=== PATIENT | female | born 1935 | race Caucasian/White ===

== ENCOUNTER 2016-10-10 12:19 | Observation (INO) | payer SELFPAY ==
[~2016-10-10] VITALS: Ht 157.5 cm; Wt 110.4 kg
[2016-10-10] MEDS ORDERED: DIPHENHYDRAMINE 50 MG INJ IV STA (12:31)
[2016-10-10] MEDS ORDERED: EPINEPHrine 1 MG INJ IM STA (12:31)
[2016-10-10 12:54] LABS: ADD SCAN DIFF NO
[2016-10-10] MEDS ORDERED: DEXAMETHASONE 10 MG/ML 1 ML INJ IV ONE (13:00)
--- NOTE | 2016-10-10 13:03 | RADRPT ---
PROCEDURE: XR Chest. CLINICAL INDICATION: Shortness of breath. Anaphylaxis. TECHNIQUE: Single frontal view. COMPARISON: None. FINDINGS: The lungs are clear. The heart is enlarged. There is calcification in the aorta consistent with atherosclerosis. There is no pleural effusion. There is no pneumothorax. IMPRESSION: 1. Cardiomegaly and atherosclerosis. 2. Clear lungs. RPTAT: QQ .Damien Wood MD, MD Date Time Electronically viewed and signed by .Damien Wood MD, MD on 10/10/2016 13:02 .R/
[2016-10-10 13:13] LABS: ALBUMIN 4.7 g/dl (3.3-4.9); ALBUMIN/GLOBULIN RATIO 3.91; BASOPHILS % 0.3 % (0.0-2.0); CALCIUM 9.5 mg/dl (8.4-10.2); CREATININE 0.73 mg/dl (0.44-1.00); EOSINOPHILS # 0.1 10^3/ul (0.0-0.5); EOSINOPHILS % 0.9 % (0.0-7.0); HEMATOCRIT 40.9 % (37.0-47.0); HEMOGLOBIN 12.4 g/dl (12.0-16.0); LYMPHOCYTES # 2.1 10^3/ul (0.8-2.9); LYMPHOCYTES % 20.9 % (15.0-51.0); MEAN CORPUSCULAR HEMOGLOBIN 25.1 pg (29.0-33.0); MEAN CORPUSCULAR HGB CONC 30.3 g/dl (32.0-37.0); MEAN CORPUSCULAR VOLUME 82.8 fl (82.0-101.0); MEAN PLATELET VOLUME 11.4 fl (7.4-10.4); MONOCYTE # 0.6 10^3/ul (0.3-0.9); NEUTROPHIL # 7.2 10^3/ul (1.6-7.5); NEUTROPHILS % 71.6 % (39.0-77.0); PLATELET COUNT 333 10^3/UL (140-415); POTASSIUM 4.2 mmol/L (3.5-5.1); RED BLOOD COUNT 4.94 10^6/ul (4.20-5.40); TOTAL PROTEIN 5.9 g/dl (6.1-8.1); WHITE BLOOD COUNT 10.1 10^3/ul (4.8-10.8)
[2016-10-10] MEDS ORDERED: IODIXANOL LOCM 100 ML BTL ONE (13:25)
[2016-10-10] MEDS ORDERED: SOD CHLORIDE 0.9% 100 ML ONE (13:25)
--- NOTE | 2016-10-10 14:07 | RADRPT ---
PROCEDURE: CT scan of the neck with contrast. CLINICAL INDICATION: pain, swelling TECHNIQUE: CT scan of the neck was performed. The patient was examined with the use of intravenou s administration of 100 cc of Isovue 300 iodinated contrast. No reported complications occurred. One or more of the following dose reduction techniques were used: Automated exposure control, Adjust ment of the mA and/or kV according to patient size, and/or use of iterative reconstruction technique . DOSE: CTDI = 10 mGy and the DLP = 325 mGy-cm. COMPARISON: None available FINDINGS: Moderate tongue swelling. Gross preservation of fat planes of the floor of mouth, submandibular space and sublingual spaces. The foraminal septum remains midline. No drainable rim-enhancing fluid collection identified. Mild thickening of the epiglottis and aryepiglottic folds. There is nonspecific asymmetric effacement o f the left vallecula is seen. No evidence of tracheal narrowing The bilateral parotid and submandibular glands are unremarkable The thyroid gland is unremarkable. Tortuous retropharyngeal course of the bilateral common carotid arteries. The visualized paranasal sinuses and mastoids are clear. Reversal of the cervical lordosis. The patient is partially edentulous with a few dental caries are identified. The visualized lung apices are clear. IMPRESSION: Moderate tongue swelling. No loss of fat planes of the floor of mouth, submandibular spaces and sublingual space to suggest jenniffer dwig angina on CT. No drainable neck abscess identified. 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
[2016-10-10] MEDS ORDERED: SOD CHLORIDE 0.9% 1,000 ML IV SCH (14:26)
--- NOTE | 2016-10-10 14:29 | ERA ---
ER Documentation Chief Complaint Date/Time DATE: 10/10/16 TIME: 14:28 Chief Complaint weakness to the right arm difficulty speaking since 6am when she woke up HPI This is a 81-year-old female presents to the emergency room with her daughter for evaluation of tongue swelling. The patient states that she woke up this morning and was in her tongue is been swollen and is more in the left than on the right. She denies any new foods, denies having any allergies and denies being on any blood pressure medication. The patient came to the ER today for further evaluation. She denies any drooling or difficulty swallowing her secretions ROS All systems reviewed and are negative except as per history of present illness. Medications Home Meds Unable to Obtain Active Prescriptions or Reported Meds Allergies Allergies: Coded Allergies: No Known Allergy (Unverified , 10/10/16) Physical Exam Vitals Vital Signs Date Time Temp Pulse Resp B/P Pulse Ox O2 Delivery O2 Flow Rate FiO2 10/10/16 14:02 99.0 80 171/78 97 Nasal Cannula 2.0 10/10/16 13:42 Nasal Cannula 2 10/10/16 13:42 99.2 79 19 161/80 98 Nasal Cannula 2.0 10/10/16 13:42 2.0 10/10/16 12:23 98.9 88 20 165/79 99 Physical Exam INITIAL VITAL SIGNS: Reviewed by me GENERAL: The patient is well developed and appropriate for usual state of health in no apparent distress HEENT: Macroglossia noted worse on the left, no pharyngeal edema, left-sided submandibular swelling, pupils equal, round, and reactive to light. EOMI. There is no scleral icterus. NECK: C-spine is soft and supple, there is no meningismus. There is no cervical lymphadenopathy. LUNGS: Clear to auscultation bilaterally. There are no rales, wheezes or rhonchi. HEART: Regular rate and rhythm, no murmurs, clicks, rubs or gallops. ABDOMEN: Soft, non-tender, non-distended. There are bowel sounds in all four quadrants. No rebound or guarding. EXTREMITIES: There is no peripheral cyanosis or edema. No focal swelling or erythema. NEUROLOGICAL: The patient moves all four extremities with 5/5 strength. Cranial nerves II - XII are intact. Normal gait. Alert and oriented SKIN: There is no apparent rash or petechiae. HEME/LYMPHATIC: There is no evidence of excessive bruising or lymphedema. PSYCHIATRIC: The patient does not appear anxious or depressed. Result Diagram: 10/10/16 1230 10/10/16 1230 Results 24 hrs Laboratory Tests Test 10/10/16 12:30 White Blood Count 10.110^3/ul Red Blood Count 4.9410^6/ul Hemoglobin 12.4g/dl Hematocrit 40.9% Mean Corpuscular Volume 82.8fl Mean Corpuscular Hemoglobin 25.1pg Mean Corpuscular Hemoglobin Concent 30.3g/dl Red Cell Distribution Width 15.0% Platelet Count 02239^3/UL Mean Platelet Volume 11.4fl Neutrophils % 71.6% Lymphocytes % 20.9% Monocytes % 6.0% Eosinophils % 0.9% Basophils % 0.3% Nucleated Red Blood Cells % 0.0/100WBC Neutrophils # 7.210^3/ul Lymphocytes # 2.110^3/ul Monocytes # 0.610^3/ul Eosinophils # 0.110^3/ul Basophils # 0.010^3/ul Nucleated Red Blood Cells # 0.010^3/ul Sodium Level 143mmol/L Potassium Level 4.2mmol/L Chloride Level 103mmol/L Carbon Dioxide Level 32mmol/L Anion Gap 12 Blood Urea Nitrogen 25mg/dl Creatinine 0.73mg/dl Glucose Level 152mg/dl Calcium Level 9.5mg/dl Total Bilirubin 0.0mg/dl Direct Bilirubin 0.00mg/dl Indirect Bilirubin 0.0mg/dl Aspartate Amino Transf (AST/SGOT) 20IU/L Alanine Aminotransferase (ALT/SGPT) 23IU/L Alkaline Phosphatase 156IU/L Total Protein 5.9g/dl Albumin 4.7g/dl Globulin 1.20g/dl Albumin/Globulin Ratio 3.91 Lipase 66U/L Current Medications Medications (Trade) Dose Ordered Sig/Jacy Route PRN Reason Start Time Stop Time Status Last Admin Dose Admin Diphenhydramine HCl (Benadryl) 50 mg ONCE STAT IV 10/10/16 12:31 10/10/16 12:33 DC 10/10/16 13:04 Epinephrine (EPINEPHrine) 0.5 mg ONCE STAT IM 10/10/16 12:31 10/10/16 12:33 DC 10/10/16 13:03 Dexamethasone (Decadron) 10 mg ONCE ONCE IV 10/10/16 13:00 10/10/16 13:01 DC 10/10/16 13:04 IV Flush 10 ml 10 ml STK-MED ONCE .ROUTE 10/10/16 13:25 10/10/16 13:26 DC 10/10/16 13:52 Sodium Chloride (NS) 100 ml @ ud STK-MED ONCE .ROUTE 10/10/16 13:25 10/10/16 13:26 DC 10/10/16 13:52 Iodixanol 100 ml 100 ml STK-MED ONCE .ROUTE 10/10/16 13:25 10/10/16 13:26 DC 10/10/16 13:52 Sodium Chloride (NS) 1,000 ml @ 80 mls/hr [id number] IV 10/10/16 14:26 10/11/16 02:55 Ondansetron HCl (Zofran Inj) 4 mg ER BRIDGE PRN IV NAUSEA AND/OR VOMITING 10/10/16 14:30 10/11/16 14:29 Acetaminophen (Tylenol Tab) 650 mg ER BRIDGE PRN PO MILD PAIN/FEVER 10/10/16 14:30 10/11/16 14:29 IV Flush (NS 3 ml) 3 ml PER PROTOCOL IV 10/10/16 16:30 UNV Acetaminophen (Tylenol Tab) 650 mg Q6H PRN PO PAIN LEVEL 1-3 OR FEVER 10/10/16 16:30 UNV Acetaminophen/ Hydrocodone Bitart ([place] (5/325)) 1 tab Q6H PRN PO MODERATE PAIN LEVEL 4-6 10/10/16 16:30 UNV Docusate Sodium (Colace) 100 mg Q12H PRN PO CONSTIPATION 10/10/16 16:30 UNV Magnesium Hydroxide (Milk Of Mag) 30 ml DAILY PRN PO CONSTIPATION 10/10/16 16:30 UNV Heparin Sodium (Porcine) (Heparin (5000 Units/0.5 ml)) 5,000 unit Q8 SC 10/10/16 22:00 UNV Insulin Aspart (Novolog Insulin Pen) NOVOLOG *MODERATE* ALGORITHM WITH MEALS BEDTIME SC 10/10/16 18:00 UNV Miscellaneous Information (* Miscellaneous Pharmacy Order) HYPOGLYCEMIA PROTOCOL w... ONCE ONCE XX 10/10/16 16:30 6/16/17 16:31 UNV Miscellaneous Information (* Miscellaneous Pharmacy Order) Discontinue all previ... ONCE ONCE XX 10/10/16 16:30 10/10/16 16:31 UNV Amlodipine Besylate (Norvasc) 10 mg ONCE ONCE PO 10/10/16 16:30 10/10/16 16:31 UNV Amlodipine Besylate (Norvasc) 10 mg DAILY ONCE PO 10/11/16 09:00 10/11/16 09:01 UNV Procedures/MDM Chest X-ray 1V Interpreted by me: Soft Tissue: No acute abnormalities Bones: No acute abnormalities Mediastinum/Cardiac Silhouette/Lungs: [No acute abnormalities] CT soft tissue neck with contrast: Moderate tongue swelling. No loss of fat planes of the floor of mouth, submandibular spaces and sublingual space to suggest jamie angina on CT. No drainable neck abscess identified. The patient is partially edentulous with a few dental caries compatible with odontogenic disease CT brain without: 1. Atrophy. 2. Microangiopathic ischemic change. 3. Atherosclerosis. 4. 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 5. Otherwise unremarkable noncontrast CT scan of the brain. This 81-year-old female presents to the ER for evaluation of tongue swelling. When I evaluated her the patient did have tongue swelling worse on the left than on the right with no pharyngeal edema. This patient was tolerating her secretions. She was given epinephrine, Benadryl, Decadron, Pepcid. I was concern for Jamie's angina. CT with contrast was obtained and does not show Jamie's angina or any abscess formation. This patient did improve slightly after medications were administered however given the severity of her tongue swelling the patient will be placed in for observation at this time for acute allergic reaction. This patient is not on an ZULEIMA inhibitor, I doubt angioedema at this time. I spoke with the patient and the patient's family in regards to his diagnosis and they are in agreement with the plan of care. This patient does not have a hoarse voice, she is talking without difficulty, tolerating her secretions Departure Diagnosis: Primary Impression: Acute allergic reaction Additional Impression: Macroglossia Condition: Stable UTE HALL DO Oct 10, 2016 14:29
[2016-10-10] MEDS ORDERED: ONDANSETRON 4 MG INJ IV PRN (14:30)
[2016-10-10] MEDS ORDERED: ACETAMINOPHEN 325 MG TAB PO PRN ×2 (14:30→16:30)
--- NOTE | 2016-10-10 16:10 | HP ---
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 Pt was in her USOH when she went to bed. When she awoke this morning, tongue was swollen, also reports some swelling around her eyes. No SOB. No CP. No weakness, numbness , tingling, dysuria. Pt denies any new meds. Per family she moved here last month from [place] and has been taking all the meds she was on there, including ENALAPRIL for BP control. No other new known exposures. PMH/Family/Social Past Medical History HTN, DM2 Social History lives with family Exam/Review of Systems Vital Signs Vitals Vital Signs Date Time Temp Pulse Resp B/P Pulse Ox O2 Delivery O2 Flow Rate FiO2 10/10/16 14:02 99.0 80 171/78 97 Nasal Cannula 2.0 10/10/16 13:42 19 Exam Exam nad, laying in bed EOMI +soft periorbital swelling more pronounced inferiorly +mod tongue swelling though airway patent neck supple no mrg lungs clear abd soft 5/5 strength bl UEs 5/5 LLE, 4+/5 RLE (family states this is old) Labs Result Diagram: 10/10/16 1230 10/10/16 1230 Medications Medications Current Medications Sodium Chloride (NS) 1,000 ml @ 80 mls/hr [id number] IV ; Start 10/10/16 at 14:26 ; Stop 10/11/16 at 02:55 Procedures Procedures imaging reviewed. TERRELL CHAN MD Oct 10, 2016 16:09
--- NOTE | 2016-10-10 16:22 | RADRPT ---
PROCEDURE: CT Brain without contrast. CLINICAL INDICATION: Weakness. TECHNIQUE: A CT of the brain without contrast was performed utilizing axial sections from the skul l base through the vertex. The patient was scanned without intravenous contrast enhancement. [place] l and coronal reformatted images were obtained using the data from the axial images. Total exam DLP is 720.23 mGy-cm. CTDIvol is 44.93 mGy. One or more of the following dose reduction techniques were used: Automated exposure control, adjustment of the mA and/or kV according to patient size, use of iterative reconstruction technique. COMPARISON: None available. FINDINGS: There is normal acosta-white matter differentiation. There is enlargement of the ventricles and subarachnoid spaces consistent with atrophy. There is decreased attenuation of the periventricular white matter consistent with microangiopathic ischemic change. There is a small old ill-defined lacunar infarct in the left basal ganglia. There is no evidence of recent infarct. There is no intracranial hemorrhage or space-occupying lesion. There are vascular calcifications consistent with atherosclerosis. There is no skull fracture or lytic lesion. IMPRESSION: 1. Atrophy. 2. Microangiopathic ischemic change. 3. Atherosclerosis. 4. 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 5. Otherwise unremarkable noncontrast CT scan of the brain. RPTAT: QQ .Damien Wood MD, Date Time Electronically viewed and signed by .Damien Wood MD, on 10/10/2016 16:22 .R/
[2016-10-10] MEDS ORDERED: HYDROCODONE/APAP (5/325) TAB PO PRN (16:30)
[2016-10-10] MEDS ORDERED: AMLODIPINE 10 MG TAB PO ONE (16:30)
[2016-10-10] MEDS ORDERED: NACL 0.9% 3 ML SYG IV SCH (16:30)
[2016-10-10] MEDS ORDERED: DOCUSATE SODIUM 100 MG CAP PO PRN (16:30)
[2016-10-10] MEDS ORDERED: HYPOGLYCEMIA PROTOCOL when Glucose is <70 mg/dL or symptomatic <90 mg/dL. XX ONE (16:30)
[2016-10-10] MEDS ORDERED: MAGNESIUM HYDROXIDE 30ML CUP PO PRN (16:30)
[2016-10-10] MEDS ORDERED: DEXTROSE 50% 50 ML SYRINGE IV PRN ×2 (17:00)
[2016-10-10] MEDS ORDERED: GLUCOSE GEL 15 GRAM TUBE PO PRN ×2 (17:00)
[2016-10-10] MEDS ORDERED: GLUCOSE GEL 15 GRAM TUBE BUCCAL PRN (17:00)
[2016-10-10] MEDS ORDERED: GLUCAGON 1 MG INJ IM PRN (17:00)
[2016-10-10] MEDS: INSULIN ASPART [NOVOLOG] 3 ML PEN SC SCH ×2 (19:38→21:19)
[2016-10-10 21:05] VITALS: TEMP 99.4
[2016-10-10] MEDS: HEPARIN 5,000 UNIT/0.5 ML VIAL SC SCH (22:15)
[2016-10-10 22:58] VITALS: PULSE 66
[2016-10-10 23:16] VITALS: Ht 157.5 cm; Wt 110.4 kg
[2016-10-11] VITALS (8 sets, daily range): BP systolic 104–133; BP diastolic 51–69; PULSE 48–61; RESP 18–20
[2016-10-11] MEDS ORDERED: ACCUCHECK AT 2AM (Patients on SS coverage) XX SCH (02:00)
[2016-10-11] MEDS: HEPARIN 5,000 UNIT/0.5 ML VIAL SC SCH ×2 (05:38→14:33)
[2016-10-11] MEDS: INSULIN ASPART [NOVOLOG] 3 ML PEN SC SCH ×2 (08:00→12:22)
[2016-10-11] MEDS ORDERED: AMLODIPINE 10 MG TAB PO ONE (09:00)
--- NOTE | 2016-10-11 12:09 | PDOCDIS ---
Discharge Instructions DIAGNOSIS Discharge Diagnosis: shruti inhibitor induced angioedema CONDITION Patient Condition: Good HOME CARE INSTRUCTIONS: Diet Instructions: Reduced Calorie ACTIVITY: Activity Restrictions: No Restrictions FOLLOW UP/APPOINTMENTS Appointments DO NOT TAKE ANY MORE LOSARTAN OR ENALAPRIL. STOP THESE MEDICATIONS check your blood pressure 1-2x/day follow up with your regular doctor this week to check on your blood pressure TERRELL CHAN MD Oct 11, 2016 12:09
[2016-10-11] MEDS ORDERED: BLOO-62 MC (12:10)
--- NOTE | 2016-10-11 12:18 | DS ---
Date/Time of Note Date/Time of Note DATE: 10/11/16 TIME: 12:10 Discharge Summary Admission/Discharge Info Admit Date/Time Oct 10, 2016 at 14:27 Discharge Date/Time Final Diagnosis angioedema 2/2 shruti inhibitor Patient Condition: Good Consults none Procedures 6.16: CXR no infiltrated NCCT head IMPRESSION: 1. Atrophy. 2. Microangiopathic ischemic change. 3. Atherosclerosis. 4. 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 5. Otherwise unremarkable noncontrast CT scan of the brain. Soft tissue CT neck IMPRESSION: Moderate tongue swelling. No loss of fat planes of the floor of mouth, submandibular spaces and sublingual space to suggest jamie angina on CT. No drainable neck abscess identified. The patient is partially edentulous with a few dental caries compatible with odontogenic disease Hx of Present Illness 81 yo F with pmhx IDDM2, HTN presents with 1 day of tongue swelling. Pt was in her USOH when she went to bed. When she awoke this morning, tongue was swollen, also reports some swelling around her eyes. No SOB. No CP. No weakness, numbness , tingling, dysuria. Pt denies any new meds. Per family she moved here last month from [place] and has been taking all the meds she was on there, including ENALAPRIL for BP control. No other new known exposures. Hospital Course Suspect etio of pt's angioedema was her enalapril. No acei/ARBs given overnight and by the next afternoon, pt's tongue swelling had totally resolved. Of note, family brought pt's home meds. They are as follows: enalapril 10 q day, losartan 50 BID, metop 50 q day, lasix 40 q day, chlorthalidone 25/d, metformin 850/day, pravastatin, gemfibrozil, and 2 stomach acid mediating agents. Pt as advised to stop both losartan and enalapril. She was given a BP cuff and advised to check her BPs 1-2x/day at home and f/u with her PCP within 7 days for further BP med adjustment. As neck CT showed cavitates, pt advised to set up a dental appt. Pt advised to return [facility] should SOB or tongue swelling recur Home Meds Active Scripts Blood Pressure Test Kit (BLOOD PRESSURE KIT) 1 Each Kit, 1 EACH MC, #1 Prov:TERRELL CHAN MD 10/11/16 Primary Care Provider Care Physician No Primary Time spent on discharge: > 30 minutes Pending Labs Laboratory Tests Test 10/10/16 12:30 10/10/16 19:26 10/10/16 21:08 10/11/16 01:56 White Blood Count 10.110^3/ul (4.8-10.8) Red Blood Count 4.9410^6/ul (4.20-5.40) Hemoglobin 12.4g/dl (12.0-16.0) Hematocrit 40.9% (37.0-47.0) Mean Corpuscular Volume 82.8fl (82.0-101.0) Mean Corpuscular Hemoglobin 25.1pg (29.0-33.0) Mean Corpuscular Hemoglobin Concent 30.3g/dl (32.0-37.0) Red Cell Distribution Width 15.0% (11.5-14.5) Platelet Count 95194^3/UL (140-415) Mean Platelet Volume 11.4fl (7.4-10.4) Neutrophils % 71.6% (39.0-77.0) Lymphocytes % 20.9% (15.0-51.0) Monocytes % 6.0% (0.0-11.0) Eosinophils % 0.9% (0.0-7.0) Basophils % 0.3% (0.0-2.0) Nucleated Red Blood Cells % 0.0/100WBC (0.0-0.0) Neutrophils # 7.210^3/ul (1.6-7.5) Lymphocytes # 2.110^3/ul (0.8-2.9) Monocytes # 0.610^3/ul (0.3-0.9) Eosinophils # 0.110^3/ul (0.0-0.5) Basophils # 0.010^3/ul (0.0-0.1) Nucleated Red Blood Cells # 0.010^3/ul (0.0-0.0) Sodium Level 143mmol/L (135-144) Potassium Level 4.2mmol/L (3.5-5.1) Chloride Level 103mmol/L (97-110) Carbon Dioxide Level 32mmol/L (21-31) Anion Gap 12 (8-16) Blood Urea Nitrogen 25mg/dl (7-20) Creatinine 0.73mg/dl (0.44-1.00) Glucose Level 152mg/dl (70-220) Hemoglobin A1c 6.8% (0-5.9) Calcium Level 9.5mg/dl (8.4-10.2) Total Bilirubin 0.0mg/dl (0.2-1.3) Direct Bilirubin 0.00mg/dl (0.00-0.20) Indirect Bilirubin 0.0mg/dl (0-1.1) Aspartate Amino Transf (AST/SGOT) 20IU/L (15-46) Alanine Aminotransferase (ALT/SGPT) 23IU/L (13-69) Alkaline Phosphatase 156IU/L (42-121) Total Protein 5.9g/dl (6.1-8.1) Albumin 4.7g/dl (3.3-4.9) Globulin 1.20g/dl (1.3-3.2) Albumin/Globulin Ratio 3.91 Lipase 66U/L (23-300) Bedside Glucose 150mg/dL (70-220) 235mg/dL (70-220) 173mg/dL (70-220) Test 10/11/16 08:00 Bedside Glucose 131mg/dL (70-220) TERRELL CHAN MD Oct 11, 2016 12:18
== END 2016-10-11 15:00 | disposition home or self-care (01) ==
LOC: E/R 12:19 → MS4 14:27
PROVIDERS: ADMIT Family Medicine; ATTEND Family Medicine
DX: T78.3XXA Angioneurotic edema, initial encounter (principal); T46.4X5A Adverse effect of angiotensin-converting-enzyme inhibitors, initial encounter; I10 Essential (primary) hypertension; E11.9 Type 2 diabetes mellitus without complications; G31.9 Degenerative disease of nervous system, unspecified; I67.82 Cerebral ischemia; I67.2 Cerebral atherosclerosis
CPT/HCPCS: 36415; 70450; 70491; 71010; 80053; 82962; 83036; 83690; 85025; 96372; 96374; 96375; 99285; G0378; J0171; J1100; J1200; J1644; J1815; J7030; Q9967